=== PATIENT | female | born 1995 | race African-American/Black ===

== ENCOUNTER → 2016-10-21 | Outpatient (CLI) | payer OTHER ==
[~2016-10-21] MED LIST: CONRAY-43 43% 50ML VIAL (Q9960) As Ordered ONE
--- NOTE | 2016-10-21 11:13 | REP ---
MRI ARTHROGRAM RIGHT HIP: TECHNIQUE: Coronal T1, STIR through the pelvis, T2 fat sat, right hip all three planes, axial oblique proton density fat sat right hip. The visualized osseous structures demonstrate normal marrow signal with no bone marrow edema or occult fracture. There is no evidence of avascular necrosis. I do not see evidence of a labral tear. There is a normal amount of joint fluid. There is no paralabral cyst. Surrounding soft tissue structures demonstrate no abnormal signal. There is no evidence of trochanteric bursitis. Within the visualized portions of the pelvis, I see no definite mass. There is mild free fluid in the pelvis. IMPRESSION: Essentially negative MR arthrogram right hip with no occult fracture or labral tear. Signed by Juancarlos Ruiz MD 10/22/2016 05:49 P
--- NOTE | 2016-10-22 17:47 | REP ---
Right hip arthrogram The procedure was performed under the direction supervision of Dr. Ruiz. The benefits and risks including but not limited to pain, infection, bleeding and anaphylaxis were explained to the patient and informed consent was obtained. The right femoral neck was localized using fluoroscopic guidance. Skin was prepped and draped in a sterile fashion. 1% lidocaine was used as a local anesthetic. Using fluoroscopic guidance a 22 gauge spinal needle was inserted and advanced to the femoral neck. 0.5 ml of Conray 43 was injected to verify placement. 11 ml of a solution containing 20 ml of sterile saline and 0.15 ml of ProHance was injected into the joint. The needle was removed and the patient was taken to MRI for postprocedural imaging. The the patient tolerated the procedure well and there were no immediate complications. 2 seconds of fluoro time was utilized for this procedure. Reviewed by VERENICE Fox 10/21/2016 01:51 PSigned by Juancarlos Ruiz MD 10/22/2016 05:38 P
== END ==
LOC: M RADPRO 06:48
PROVIDERS: ATTEND Nurse Practitioner Family
DX: M25.551 Pain in right hip (principal); M85.48 Solitary bone cyst, other site
CPT/HCPCS: 27093; 73723; 77002; A9576; Q9960

== ENCOUNTER → 2016-10-23 | Outpatient (CLI) | payer OTHER ==
--- NOTE | 2016-10-23 10:08 | REP ---
MR ARTHROGRAM LEFT HIP: TECHNIQUE: Coronal T1, STIR through the pelvis, T2 fat sat, left hip all three planes, axial oblique proton density fat sat left hip. The visualized osseous structures demonstrate normal marrow signal. There is no bone marrow edema or occult fracture. There is no evidence of avascular necrosis. There is no evidence of a labral tear. No paralabral cyst is seen. There is a normal amount of joint fluid. Surrounding soft tissue structures are unremarkable. There is no evidence of significant tendinobursitis along the greater trochanter. Within the visualized portions of the pelvis, a mild amount of free fluid is noted without other definite significant finding. IMPRESSION: Essentially negative MRI arthrogram left hip. No evidence of a labral tear. No underlying osseous abnormality seen. Signed by Juancarlos Ruiz MD 10/23/2016 10:13 A
--- NOTE | 2016-10-23 15:42 | REP ---
Left hip arthrogram The procedure was performed under the direction supervision of Dr. Ruzi. The benefits and risks including but not limited to pain, infection, bleeding and anaphylaxis were explained to the patient and informed consent was obtained. The left femoral neck was localized using fluoroscopic guidance. Skin was prepped and draped in a sterile fashion. 1% lidocaine was used as a local anesthetic. Using fluoroscopic guidance a 22 gauge spinal needle was inserted and advanced to the femoral neck. 0.5 ml of Conray 43 was injected to verify placement. 11 ml of a solution containing 20 ml of sterile saline and 0.15 ml of ProHance was injected into the joint. The needle was removed and the patient was taken to MRI for postprocedural imaging. The the patient tolerated the procedure well and there were no immediate complications. 2 seconds of fluoro time was utilized for this procedure. Reviewed by VERENICE Fox 10/23/2016 02:07 PSigned by Juancarlos Ruiz MD 10/23/2016 03:32 P
== END ==
LOC: M RADPRO 06:50 → EDUNIT# 07:30
PROVIDERS: ATTEND Nurse Practitioner Family
DX: M25.552 Pain in left hip (principal)
CPT/HCPCS: 27093; 73723; 77002; A9576; Q9960

== ENCOUNTER 2017-03-01 15:04 | Emergency (ER) | payer OTHER ==
[~2017-03-01] VITALS: Ht 162.6 cm; Wt 78.2 kg
[2017-03-01] MEDS ORDERED: ALBUTEROL SULFATE 2.5 MG/0.5 ML INH NEB SOLN INH ONE (17:00)
[2017-03-01] MEDS ORDERED: ALBU17IN2 INH (17:45)
[2017-03-01] MEDS ORDERED: PRED20TA PO (17:45)
[2017-03-01] MEDS ORDERED: predniSONE 10 MG TAB PO ONE (18:00)
[2017-03-01 18:04] VITALS: BP 112/87
== END 2017-03-01 18:05 | disposition home or self-care (01) ==
LOC: M ED 15:04
DX: O99.512 Diseases of the respiratory system complicating pregnancy, second trimester (principal); O99.89 Other specified diseases and conditions complicating pregnancy, childbirth and the puerperium; R21 Rash and other nonspecific skin eruption; Z3A.21 21 weeks gestation of pregnancy

== ENCOUNTER 2017-07-11 18:48 | Inpatient (IN) | payer OTHER ==
[2017-07-11 20:12] LABS: HEMATOCRIT 34.1 % (36.0-47.0); HEMOGLOBIN 11.8 g/dl (12.0-15.5); MEAN CORPUSCULAR HEMOGLOBIN 29.9 pg (27.0-33.0); MEAN CORPUSCULAR HGB CONC 34.6 g/dl (32.0-36.5); MEAN CORPUSCULAR VOLUME 86.3 fl (80.0-96.0); PLATELET COUNT, AUTOMATED 189 10^3/uL (150-450); RED BLOOD COUNT 3.95 10^6/uL (4.00-5.40); RED CELL DISTRIBUTION WIDTH 12.7 % (11.5-14.5)
[2017-07-11] MEDS: PROMETHAZINE INJ 25 MG/ML VIAL (J2550) IV (23:24)
[2017-07-11] MEDS: NALBUPHINE HCL 10 MG/ML AMP (J2300) IM (23:25)
[2017-07-11] MEDS: NALBUPHINE HCL 10 MG/ML AMP (J2300) IV (23:25)
[2017-07-12] MEDS: LR 1,000 ML IV ×4 (00:35→20:01)
[2017-07-12] MEDS: OXYTOCIN DRIP 30 UNITS in APPROPRIATE DILUENT 1 EA IV (00:45)
[2017-07-12] MEDS ORDERED: FENTANYL 2MCG/ML ROPIVACAINE 0.2% IN 0.9% NACL 200ML IVBAG As Ordered (03:43)
[2017-07-12] MEDS: LACTATED RINGER'S 1000 ML IV (03:59)
[2017-07-12] MEDS ORDERED: NALOXONE INJ 0.4 MG/1 ML VIAL (J2310) IV (05:00)
[2017-07-12] MEDS ORDERED: REFRIGERATOR IV KEYS XX (05:00)
[2017-07-12] MEDS ORDERED: diphenhydrAMINE INJ 50MG/ML VIAL (J1200) IV (05:00)
[2017-07-12] MEDS ORDERED: ePHEDrine SULFATE 25 MG/5 ML(5MG/ML) SYRINGE IV (05:00)
[2017-07-12] MEDS ORDERED: ONDANSETRON 4MG/2ML VIAL (J2405) IV (05:00)
[2017-07-12] MEDS ORDERED: EPIDURAL/PCA KEYS XX (05:00)
[2017-07-12] MEDS ORDERED: EPIDURAL COMMENT XX (05:00)
[2017-07-12] MEDS ORDERED: LACTATED RINGER'S 1000 ML IV (05:00)
[2017-07-12] MEDS ORDERED: OXYTOCIN DRIP 30 UNITS in APPROPRIATE DILUENT 1 EA IV (11:49)
[2017-07-12] MEDS ORDERED: RHOGAM 300 MCG (1500 IU) INJ (J2790) IM (12:00)
[2017-07-12] MEDS ORDERED: DOCUSATE SODIUM 100 MG CAP PO (12:00)
[2017-07-12] MEDS ORDERED: DIBUCAINE 1% OINTMENT 30GM TOP (12:00)
[2017-07-12] MEDS ORDERED: ACETAMINOPHEN 500 MG TAB PO (12:00)
[2017-07-12] MEDS ORDERED: MEASLES,MUMPS,RUBELLA VACCINE INJ (MMR-II) (90707) SC (12:00)
[2017-07-12] MEDS: IBUPROFEN 800 MG TAB PO (19:43)
[2017-07-13] MEDS: PRENATAL VITAMINS CHEWABLE TABLET PO (09:41)
[2017-07-13] MEDS: IBUPROFEN 800 MG TAB PO (15:05)
[2017-07-13] MEDS: FENTANYL/ROPIVACAINE/NACL BAG 200 ML EPIDURAL ×3 (19:11→19:13)
[2017-07-13] MEDS: LR 1,000 ML IV ×2 (19:12)
[2017-07-14] MEDS: IBUPROFEN 800 MG TAB PO (05:38)
== END 2017-07-14 10:15 | disposition home or self-care (01) | DRG 775 ==
LOC: M LDO 18:48 → M LDI 19:56 → M OBS 07-12 14:06
PROVIDERS: Obstetrics & Gynecology
PROC: 10E0XZZ Delivery of Products of Conception, External Approach (ICD-10-PCS; principal; 2017-07-12)
PROC: 0KQM0ZZ Repair Perineum Muscle, Open Approach (ICD-10-PCS; 2017-07-12)
PROC: 0HQ9XZZ Repair Perineum Skin, External Approach (ICD-10-PCS; 2017-07-12)
DX: O48.0 Post-term pregnancy (principal); Z37.0 Single live birth; Z3A.40 40 weeks gestation of pregnancy; O70.0 First degree perineal laceration during delivery; O70.1 Second degree perineal laceration during delivery; O77.0 Labor and delivery complicated by meconium in amniotic fluid; O76 Abnormality in fetal heart rate and rhythm complicating labor and delivery